=== PATIENT | male | born 1970 | race Caucasian/White ===

== ENCOUNTER 2019-10-01 08:07 | Day surgery (SDC) | payer BC ==
[2019-09-28 11:23] VITALS: BMI 26.4
[~2019-10-01 08:07] MED LIST: LACTATED RINGERS 1,000 ML IV SCH
[2019-10-01] MEDS ORDERED: LIDOCAINE 1% 20 ML VIAL (10MG/ML) FOR IV START INTRADERMA ONE (08:25)
[2019-10-01 08:35] VITALS: RESP 16; TEMP 98.3
[2019-10-01] MEDS ORDERED: PROPOFOL 10 MG/ML 20 ML VIAL IV ONE (09:45)
--- NOTE | 2019-10-01 09:50 | P.GSHP ---
History of Present Illness H&P Date: 10/01/19 Chief Complaint: Colon cancer screening Patient here today for colonoscopy. He has not had one previously. No bowel related complaints. No family history of colon cancer. Past Medical History Past Medical History: Asthma, GERD/Reflux, Skin Disorder Additional Past Medical History / Comment(s): hx ulcer, dry skin, History of Any Multi-Drug Resistant Organisms: None Reported Additional Past Surgical History / Comment(s): sinus surgery/polyps removed, chest tube for collapsed lung, oral surgery Past Anesthesia/Blood Transfusion Reactions: Motion Sickness Smoking Status: Never smoker - Past Family History Father Family Medical History: Cancer Medications and Allergies Home Medications Medication Instructions Recorded Confirmed Type Cyanocobalamin (Vitamin B-12) 1,000 mcg PO DAILY 09/28/19 10/01/19 History [Vitamin B-12] Inhaler(Name Unknown) 1 applicate IH DIRECTED PRN 09/28/19 10/01/19 History Multivitamins, Thera [Multivitamin 1 tab PO DAILY 09/28/19 10/01/19 History (formulary)] Allergies Allergy/AdvReac Type Severity Reaction Status Date / Time ampicillin Allergy Unknown Verified 10/01/19 08:15 Childhood Surgical - Exam Vital Signs Temp Pulse Resp BP Pulse Ox 98.3 F 80 16 131/78 97 10/01/19 08:25 10/01/19 08:25 10/01/19 08:25 10/01/19 08:25 10/01/19 08:25 Physical exam: General: Well-developed, well-nourished HEENT: Normocephalic, sclerae nonicteric Abdomen: Nontender, nondistended Extremities: No edema Neuro: Alert and oriented Assessment and Plan (1) Colon cancer screening Narrative/Plan: Will proceed with colonoscopy at this time Current Visit: Yes Status: Acute Code(s): Z12.11 - ENCOUNTER FOR SCREENING FOR MALIGNANT NEOPLASM OF COLON SNOMED Code(s): 281902756
--- NOTE | 2019-10-01 10:04 | P.PCN ---
Date of Procedure: 10/01/19 Procedure(s) Performed: PREOPERATIVE DIAGNOSIS: Colon cancer screening POSTOPERATIVE DIAGNOSIS: Small sigmoid polyp PROCEDURE: Colonoscopy with snare polypectomy ANESTHESIA: MAC SURGEON: Fortunato Patino M.D. SPECIMENS: Sigmoid polyp ENDOSCOPIC PROCEDURE: The patient was placed on the endoscopy table in the left decubitus position. The Olympus colonoscope was inserted into the anus and passed under direct visualization to the base of the cecum. The appendiceal orifice was visualized. From that point the scope was slowly withdrawn inspecting all surfaces carefully. There were no neoplastic inflammatory or polypoid lesions throughout the cecum, ascending, transverse, and descending colon. In the sigmoid there was noted to be a small polyp that was removed using snare with cautery technique. The remainder of the sigmoid and rectum was normal. There was no visible diverticulosis. Digital rectal examination was normal. The patient was taken to the recovery room in stable condition per anesthesia guidelines. RECOMMENDATIONS: Await Biopsy results.
[2019-10-01 10:22] VITALS: BP 123/77; PULSE 77
== END 2019-10-01 10:32 | disposition home or self-care (01) ==
LOC: ORWHC2ENDO 08:07
PROVIDERS: ATTEND Surgery
DX: Z12.11 Encounter for screening for malignant neoplasm of colon (principal); K63.5 Polyp of colon; J45.909 Unspecified asthma, uncomplicated; K21.9 Gastro-esophageal reflux disease without esophagitis; Z87.19 Personal history of other diseases of the digestive system; Z98.890 Other specified postprocedural states; Z79.899 Other long term (current) drug therapy; Z88.0 Allergy status to penicillin
CPT/HCPCS: 45385; J2704

== ENCOUNTER → 2022-01-17 | Outpatient (CLI) | payer BC ==
[2022-01-17 22:29] LABS: Basophils # (A) 0.01 X 10*3/uL (0.00-0.10); Basophils % (A) 0.2 %; Eosinophils % (A) 2.1 %; HCT 38.9 % (39.6-50.0); HGB 13.9 g/dL (13.0-17.0); Immature Grans, Automated 0.4 %; Lymphocytes # (A) 1.35 X 10*3/uL (0.90-5.00); MCH 31.1 pg (27.0-32.0); MCHC 35.7 g/dL (32.0-37.0); Mean Platelet Volume 11.6 fL (9.5-12.2); Monocytes # (A) 0.36 X 10*3/uL (0.20-1.00); Monocytes % (A) 7.5 %; NRBC Per 100 WBC 0 /100 WBCS (0.0-0.0); Neutrophils # (A) 2.98 X 10*3/uL (1.80-7.70); Neutrophils % (A) 61.8 %; Platelet Count 165 X 10*3/uL (140-440); RBC 4.47 X 10*6/uL (4.40-5.60); RDW 12.9 % (11.5-14.5); WBC 4.82 X 10*3/uL (4.50-10.00)
== END | disposition home or self-care (01) ==
LOC: LABPAT 16:31
PROVIDERS: ATTEND Surgery
DX: Z01.812 Encounter for preprocedural laboratory examination (principal); K40.90 Unilateral inguinal hernia, without obstruction or gangrene, not specified as recurrent
CPT/HCPCS: 85025; 93005

== ENCOUNTER 2022-01-22 05:57 | Day surgery (SDC) | payer BC ==
[2022-01-16 14:46] VITALS: BMI 26.4
[~2022-01-22 05:57] MED LIST changes: +ACETAMINOPHEN TAB 500 MG TAB PO PRN; +DEXAMETHASONE SOD PHOSPHATE 4 MG/ML 1 ML VIAL IV ONE; +HEPARIN SODIUM,PORCINE/PF 5,000 UNIT/0.5 ML SYRINGE SQ PRN; +ONDANSETRON 4 MG/2 ML VIAL IVP ONE
[2022-01-22 06:49] LABS: Glucose,Whole Blood 111 mg/dL (75-99)
[2022-01-22] MEDS ORDERED: HYDROmorphone 0.5 MG/0.5 ML SYRINGE IVP PRN (07:00)
[2022-01-22] MEDS ORDERED: SCOPOLAMINE 1 MG/72 HR PATCH TRANSDERM ONE (07:00)
[2022-01-22] MEDS ORDERED: MIDAZOLAM 2 MG/2 ML VIAL IVP ONE (07:16)
[2022-01-22] MEDS ORDERED: BUPIVACAIN-EPI 0.25%-1:200,000 30 ML VIAL SQ ONE ×2 (07:27→08:18)
[2022-01-22] MEDS ORDERED: SUCCINYLCHOLINE CHLORIDE 100 MG/5 ML SYR IV ONE (07:51)
[2022-01-22] MEDS ORDERED: GLYCOPYRROLATE 0.2 MG/ML 2 ML VIAL ONE (07:51)
[2022-01-22] MEDS ORDERED: LIDOCAINE 2% INJ 20 MG/ML (2 ML VIAL) ONE (07:51)
[2022-01-22] MEDS ORDERED: KETOROLAC 15 MG/ML 1 ML VIAL ONE (07:51)
[2022-01-22] MEDS ORDERED: KETAMINE 10 MG/ML 20 ML VIAL ONE (07:51)
[2022-01-22] MEDS ORDERED: ROCURONIUM 10 MG/ML (5 ML VIAL) IV ONE (07:51)
[2022-01-22] MEDS ORDERED: DEXAMETHASONE SOD PHOSPHATE 4 MG/ML 1 ML VIAL ONE (07:51)
[2022-01-22] MEDS ORDERED: MIDAZOLAM 2 MG/2 ML VIAL ONE (07:51)
[2022-01-22] MEDS ORDERED: NEOSTIGMINE 1 MG/ML 10 ML VIAL ONE (07:51)
[2022-01-22] MEDS ORDERED: SODIUM CHLORIDE 0.9% (PF) 10 ML VIAL ONE (07:51)
[2022-01-22] MEDS ORDERED: HYDROmorphone (PF) 1 MG/ML ONE (07:51)
[2022-01-22] MEDS ORDERED: fentaNYL (PF) 50 MCG/ML 2 ML AMP ONE (07:51)
[2022-01-22] MEDS ORDERED: PROPOFOL 10 MG/ML 20 ML VIAL IV ONE (07:51)
[2022-01-22] MEDS ORDERED: ROPIVACAINE 5 MG/ML 30 ML VIAL ONE (07:51)
--- NOTE | 2022-01-22 08:55 | P.GSHP ---
History of Present Illness H&P Date: 01/22/22 Chief Complaint: Left inguinal hernia This a 51-year-old male who's developed a reducible left inguinal hernia. Patient presents today for laparoscopic robotic-assisted repair. Past Medical History Past Medical History: Asthma, GERD/Reflux, Skin Disorder Additional Past Medical History / Comment(s): Hx ulcer, dry skin. History of Any Multi-Drug Resistant Organisms: None Reported Additional Past Surgical History / Comment(s): Sinus surgery/polyps removed, chest tube for collapsed lung, oral surgery. Past Anesthesia/Blood Transfusion Reactions: No Reported Reaction, Motion Sickness Past Psychological History: No Psychological Hx Reported Smoking Status: Never smoker Past Alcohol Use History: Occasional Past Drug Use History: None Reported - Past Family History Father Family Medical History: Cancer Medications and Allergies Home Medications Medication Instructions Recorded Confirmed Type Cyanocobalamin (Vitamin B-12) 1,000 mcg PO DAILY 09/28/19 01/22/22 History [Vitamin B-12] Multivitamins, Thera [Multivitamin 1 tab PO DAILY 09/28/19 01/22/22 History (formulary)] Dramamine 1 tab PO DIRECTED PRN 01/16/22 01/22/22 History Zinc 50 mg PO DAILY 01/16/22 01/22/22 History Allergies Allergy/AdvReac Type Severity Reaction Status Date / Time ampicillin Allergy Unknown Verified 01/22/22 06:14 Childhood Surgical - Exam Vital Signs Temp Pulse Resp BP Pulse Ox 98.4 F 68 18 130/76 98 01/22/22 06:28 01/22/22 06:28 01/22/22 06:28 01/22/22 06:28 01/22/22 06:28 - General well developed, well nourished, no distress - Eyes PERRL - ENT normal pinna - Neck no masses - Respiratory normal expansion - Cardiovascular Rhythm: regular - Abdomen Abdomen: soft, non tender Hernia: inguinal (Left) Results - Labs Abnormal Lab Results - Last 24 Hours (Table) 01/22/22 Range/Units 06:46 POC Glucose (mg/dL) 111 H (75-99) mg/dL Assessment and Plan Assessment: Left inguinal hernia. We'll perform laparoscopic robotic-assisted repair.
--- NOTE | 2022-01-22 08:56 | P.OP ---
Date of Procedure: 01/22/22 Preoperative Diagnosis: Reducible left inguinal hernia Postoperative Diagnosis: Reducible left inguinal hernia Procedure(s) Performed: Laparoscopic robotic system repair of left inguinal hernia Excision of left cord lipoma Transversus abdominis plane block Anesthesia: JUAN DAVID Surgeon: Lawrence Aguilera Estimated Blood Loss (ml): 5 Pathology: other (Left cord lipoma) Condition: stable Disposition: PACU Description of Procedure: The patient's placed on the operating table in the supine position. The patient received general anesthesia. The patient's abdomen was prepped and draped in usual sterile fashion. The skin was anesthetized 1% local Xylocaine at the incision sites. Using an 11 blade a skin incision was made at the umbilicus. The fascia was grasped with a Sandy and then the peritoneal cavity was entered with the Veress needle. Position of the Veress needle was confirmed with a positive drop test. After adequate insufflation a 5 mm trocar was placed into the peritoneal cavity. The Laparoscope was placed the peritoneal cavity. And a robotic 8 mm trocar was placed in the right lateral position and then another 8 mm robotic trochars placed in the left lateral position. The original 5 mm trocar was exchanged for a 12 mm trocar. Next, a transversus abdominis plane block was performed by injecting 1% local Xylocaine into 4 quadrants. The patient was placed in reverse Trendelenburg and then the patient was docked to the robot. Next the peritoneum over top of the hernia was incised and then using blunt and sharp dissection and electrocautery the hernia sac was dissected free from the floor of the inguinal canal. The cord structures were identified. The cord lipoma was dissected free and sent to pathology. The hernia sac was completely reduced into the peritoneal cavity. And then using the Pro lavatory attendant mesh the hernia was repaired. The peritoneum was then sutured with 20V lock suture. The patient was then undocked the robot. The needle was withdrawn from the peritoneal cavity. The umbilical trocar site was closed with 0 Ethibond suture. The skin was closed interrupted 3-0 Monocryl suture. Dermabond dressing was applied. Patient was sent to recovery in stable condition.
[2022-01-22 08:58] VITALS: TEMP 97
[2022-01-22 11:06] VITALS: RESP 20
[2022-01-22 11:49] VITALS: BP 142/88; PULSE 70
--- NOTE | 2022-01-23 09:28 | P.ANPRN ---
Procedure Note - Anesthesia - Nerve Block Performed Bilateral Erector Spinae Single Time Out Performed: Yes Date of Procedure: 01/22/22 Procedure Start Time: 07:16 Procedure Stop Time: :24 Location of Patient: PreOp Indication: Acute Post-Operative Pain, Requested by Surgeon Sedation Type: Sedate with meaningful contact maintained Preparation: Sterile Prep Position: Prone Needle Types: Pajunk Needle Gauge: 21 Ultrasound used to visualize needle placement: Yes Ultrasound used to observe medication spread: Yes Blood Aspirated: No Pain Paresthesia on Injection Noted: No Resistance on Injection: Normal Image Stored and Saved: Yes Events: Uneventful and Well Tolerated (ropi .5% 15cc plus normal saline 10cc plus dexamethasone 4mg given at L1 bilaterally)
== END 2022-01-22 12:10 ==
LOC: OR 05:57
PROVIDERS: ATTEND Surgery
DX: K40.90 Unilateral inguinal hernia, without obstruction or gangrene, not specified as recurrent (principal); J45.909 Unspecified asthma, uncomplicated; K21.9 Gastro-esophageal reflux disease without esophagitis; G89.18 Other acute postprocedural pain
CPT/HCPCS: 49650; 55520; S2900; 64999; 86850; 86900; 86901; 88304